=== PATIENT | male | born 1965 | race African-American/Black ===

== ENCOUNTER 2021-01-05 12:28 | Emergency (ER) | payer OTHER ==
[~2021-01-05] VITALS: Ht 175.3 cm; Wt 95.0 kg
[2021-01-05 12:40] VITALS: BP 184/113
--- NOTE | 2021-01-05 13:15 | PHYS DOC ---
Past Medical History Past Medical History: Asthma, Hypertension Past Surgical History: No Surgical History Smoking Status: Never Smoker Alcohol Use: None General Adult EDM: Chief Complaint: MECHANICAL FALL HPI: HPI: Patient is a 55 year old male who presents with here from [facility] after he rolled off the top bunk bed. He states that he hit the back of his head and had a few seconds of LOC. He also has left shoulder pain with very limited range of motion. States is throbbing. He rates his pain 10 out of 10. Patient denies dizziness, headache, vision changes, abdominal pain, nausea, vomiting, diarrhea, neck pain, back pain, numbness or tingling. Review of Systems: Review of Systems: Constitutional: Denies fever or chills. [] Eyes: Denies change in visual acuity. [] HENT: Denies nasal congestion or sore throat. [] Respiratory: Denies cough or shortness of breath. [] Cardiovascular: Denies chest pain or edema. [] GI: Denies abdominal pain, nausea, vomiting, bloody stools or diarrhea. [] : Denies dysuria. [] Musculoskeletal: Denies back pain or joint pain. + Shoulder pain [] Integument: Denies rash. [] Neurologic: Denies headache, focal weakness or sensory changes. + Slight tenderness to the back of the head. + LOC [] Endocrine: Denies polyuria or polydipsia. [] Lymphatic: Denies swollen glands. [] Psychiatric: Denies depression or anxiety. [] Heart Score: C/O Chest Pain: No Risk Factors: Risk Factors: DM, Current or recent (<one month) smoker, HTN, HLP, family history of CAD, obesity. Risk Scores: Score 0 - 3: 2.5% MACE over next 6 weeks - Discharge Home Score 4 - 6: 20.3% MACE over next 6 weeks - Admit for Clinical Observation Score 7 - 10: 72.7% MACE over next 6 weeks - Early Invasive Strategies Allergies: Allergies: Allergies Coded Allergies Type Severity Reaction Last Updated Verified No Known Drug Allergies 01/05/21 No Physical Exam: PE: Constitutional: Well developed, well nourished, no acute distress, non-toxic appearance. [] HENT: Normocephalic, atraumatic, bilateral external ears normal, oropharynx moist, no oral exudates, nose normal. [] Eyes: PERRLA, EOMI, conjunctiva normal, no discharge. [] Neck: Normal range of motion, no tenderness, supple, no stridor. [] Cardiovascular:Heart rate regular rhythm, no murmur [] Lungs & Thorax: Bilateral breath sounds clear to auscultation [] Abdomen: Bowel sounds normal, soft, no tenderness, no masses, no pulsatile masses. [] Skin: Warm, dry, no erythema, no rash. + Tenderness to the back of the head. [] Back: No tenderness, no CVA tenderness. [] Extremities: Left shoulder tenderness, no cyanosis, no clubbing, left shoulder ROM not intact, 1+ edema. [] Neurologic: Alert and oriented X 3, normal motor function, normal sensory function, no focal deficits noted. [] Psychologic: Affect normal, judgement normal, mood normal. [] Current Patient Data: Vital Signs: Vital Signs Date Time Temp Pulse Resp B/P (MAP) Pulse Ox O2 Delivery O2 Flow Rate FiO2 01/05/21 12:40 98.8 80 16 184/113 (136) 99 Room Air 98.8 EKG: EKG: [] Radiology/Procedures: Radiology/Procedures: [] Impression: [facility] [address] [place], [place] [id number] IMAGING REPORT Signed PATIENT: MELISSA HERNADEZ ACCOUNT: [id number] : 1965 LOCATION: ER AGE: 55 SEX: M EXAM STATUS: REG ER ORD. PHYSICIAN: ROWAN GUTIERREZ APRN REASON: fall off bunk bed, loc PROCEDURE: CT HEAD AND CERVICAL SPINE WO PQRS Compliance Statement: One or more of the following individualized dose reduction techniques were utilized for this examination: 1. Automated exposure control 2. Adjustment of the mA and/or kV according to patient size 3. Use of iterative reconstruction technique CT HEAD AND CERVICAL SPINE WITHOUT CONTRAST History: Reason: fall off bunk bed, loc / Spl. Instructions: / History: Comparison: None. Procedure: Axial images are obtained of the head from the skull base through the vertex without IV contrast. Noncontrast helical CT of the cervical spine was performed. Axial, sagittal, and coronal reconstructions were obtained. Findings: The ventricles and sulci are normal for the patient's age. No mass-effect, midline shift, hemorrhage or obvious acute infarction is identified. Basilar cisterns are patent. There is a small area of midline right occipital lobe encephalomalacia. Tiny hypodensity in the inferior left cerebellum could be encephalomalacia versus a cyst. Bone windows demonstrate no significant calvarial abnormality. There is mild right parietal scalp hematoma. The visualized paranasal sinuses are clear. Mastoid air cells are well aerated. There is no evidence of acute fracture or acute malalignment of the cervical spine. There are no perched or jumped facet joints. The vertebral body height and alignment are maintained. There is mild degenerative endplate spurring. The disc spaces are relatively maintained. Uncinate process hypertrophy of C6/C7. This produces bilateral neural foraminal narrowing. Visualized soft tissues of the neck demonstrate no significant abnormalities. The visualized lung apices are clear. There is biapical paraseptal emphysema. IMPRESSION: 1. No acute intracranial abnormality. 2. No acute fracture of the cervical spine. Electronically signed by: Nigel Vargas MD (01/05/2021 1:30 PM) [id number] DICTATED and SIGNED BY: NIGEL VARGAS MD DATE: 01/05/21 [id number] [facility] [address] [place], [place] [id number] IMAGING REPORT Signed PATIENT: MELISSA HERNADEZ ACCOUNT: [id number] : 1965 LOCATION: ER AGE: 55 SEX: M EXAM STATUS: REG ER ORD. PHYSICIAN: ROWAN GUTIERREZ APRN REASON: fall off a bunk bed in retirement PROCEDURE: SHOULDER 2+V LEFT EXAM: XR LEFT CLAVICLE, XR SHOULDER_LEFT 2+ VIEWS 01/05/2021 1:13 PM CLINICAL INDICATION: Fell off a bunk bed COMPARISON: None TECHNIQUE: 3 views of the left shoulder, 2 views of the left clavicle FINDINGS: Left shoulder: No acute fracture or dislocation. Mild acromioclavicular degenerative joint disease. The glenohumeral joint is normal. Left clavicle: No acute fracture or dislocation. Mild acromioclavicular degenerative joint disease. No acromioclavicular or coracoclavicular widening. IMPRESSION: No acute osseous abnormality of the left shoulder or clavicle. Electronically signed by: Ann Dennis MD (01/05/2021 1:37 PM) [id number] DICTATED and SIGNED BY: ANN DENNIS MD DATE: 01/05/21 [id number] Course & Med Decision Making: Course & Med Decision Making Pertinent Labs and Imaging studies reviewed. (See chart for details) See HPI. Alert and oriented x4. Ambulatory with a steady gait. Speaks in full clear sentences. No bruising, swelling or laceration or abrasion to the back of the head. He states that there is slight tenderness to the back of the head with palpation. Tenderness of the left shoulder to the anterior, lateral, posterior. 1+ swelling. Radial pulse strong present. Skin pink warm and dry. Cap refill less than 2 seconds. PERRLA. No focal bony spinal tenderness with palpation. There are 2 officers in the room and patient is in handcuffs at this time. Range of motion of the shoulder is very limited. There is no laxity to the joint. X-ray showed no acute finding. He will be referred to orthopedics. Patient be placed in arm sling. CT head and cervical spine show no acute findings. [] Dragon Disclaimer: Luisana Disclaimer: This electronic medical record was generated, in whole or in part, using a voice recognition dictation system. Departure Departure Impression: Primary Impression: Shoulder pain, left Qualified Codes: M25.512 - Pain in left shoulder Additional Impression: Head injury Qualified Codes: S09.90XA - Unspecified injury of head, initial encounter Disposition: HOME / SELF CARE / HOMELESS Condition: STABLE Referrals: DARIELA NEWMAN MD Patient Instructions: Head Injury, Adult, Shoulder Pain Additional Instructions: Follow-up with orthopedic as soon as possible. Take ibuprofen for your pain. Use ice. Scripts Ibuprofen (IBUPROFEN) 600 Mg Tablet 600 MG PO PRN Q6HRS PRN for INFLAMMATION, #26 TAB Prov: ROWAN GUTIERREZ APRN 01/05/21 ROWAN GUTIERREZ APRN January 05, 2021 13:15
--- NOTE | 2021-01-05 13:32 | RAD ---
PQRS Compliance Statement: One or more of the following individualized dose reduction techniques were utilized for this examinat ion: 1. Automated exposure control 2. Adjustment of the mA and/or kV according to patient size 3. Use of iterative reconstruction technique CT HEAD AND CERVICAL SPINE WITHOUT CONTRAST History: Reason: fall off bunk bed, loc / Spl. Instructions: / History: Comparison: None. Procedure: Axial images are obtained of the head from the skull base through the vertex without IV co ntrast. Noncontrast helical CT of the cervical spine was performed. Axial, sagittal, and coronal rec onstructions were obtained. Findings: The ventricles and sulci are normal for the patient's age. No mass-effect, midline shift, hemorrhage or obvious acute infarction is identified. Basilar cistern s are patent. There is a small area of midline right occipital lobe encephalomalacia. Tiny hypodensity in the infer ior left cerebellum could be encephalomalacia versus a cyst. Bone windows demonstrate no significant calvarial abnormality. There is mild right parietal scalp hem atoma. The visualized paranasal sinuses are clear. Mastoid air cells are well aerated. There is no evidence of acute fracture or acute malalignment of the cervical spine. There are no perched or jumped facet joints. The vertebral body height and alignment are maintained. There is mild degenerative endplate spurring. The disc spaces are relatively maintained. Uncinate pro cess hypertrophy of C6/C7. This produces bilateral neural foraminal narrowing. Visualized soft tissues of the neck demonstrate no significant abnormalities. The visualized lung api felicia are clear. There is biapical paraseptal emphysema. IMPRESSION: 1. No acute intracranial abnormality. 2. No acute fracture of the cervical spine. Electronically signed by: Nigel Vargas MD (01/05/2021 1:30 PM) [id number]
--- NOTE | 2021-01-05 13:39 | RAD ---
EXAM: XR LEFT CLAVICLE, XR SHOULDER_LEFT 2+ VIEWS 01/05/2021 1:13 PM CLINICAL INDICATION: Fell off a bunk bed COMPARISON: None TECHNIQUE: 3 views of the left shoulder, 2 views of the left clavicle FINDINGS: Left shoulder: No acute fracture or dislocation. Mild acromioclavicular degenerative joint disease. T he glenohumeral joint is normal. Left clavicle: No acute fracture or dislocation. Mild acromioclavicular degenerative joint disease. N o acromioclavicular or coracoclavicular widening. IMPRESSION: No acute osseous abnormality of the left shoulder or clavicle. Electronically signed by: Ann Dennis MD (01/05/2021 1:37 PM) [id number]
[2021-01-05] MEDS ORDERED: IBUPROFEN 200 MG TABLET. PO ONE (13:45)
[2021-01-05] MEDS ORDERED: IBUP-1007 PO (13:47)
== END 2021-01-05 14:10 | disposition home or self-care (01) ==
LOC: ER 12:28 → EEVIPCON 12:28 → ER 14:10
DX: S09.90XA Unspecified injury of head, initial encounter (principal); M25.512 Pain in left shoulder; J45.909 Unspecified asthma, uncomplicated; I10 Essential (primary) hypertension; W06.XXXA Fall from bed, initial encounter; Y93.89 Activity, other specified; Y92.89 Other specified places as the place of occurrence of the external cause; Y99.8 Other external cause status
CPT/HCPCS: 70450; 72125; 73000; 73030; 99285; A4565